=== PATIENT | female | born 1975 | race Caucasian/White ===

== ENCOUNTER 2017-09-09 05:46 | Day surgery (SDC) | payer BC ==
[~2017-09-09] VITALS: Ht 162.6 cm; Wt 75.9 kg
[~2017-09-09 05:46] MED LIST: PREN1TAB49
[2017-09-09 07:29] VITALS: Ht 162.6 cm; Wt 75.9 kg
[2017-09-09 07:53] VITALS: BP 140/87; PULSE 57; RESP 21
[2017-09-09] MEDS ORDERED: MIDAZOLAM 1 MG/ML 2 ML INJ ONE (07:59)
[2017-09-09] MEDS ORDERED: LIDOCAINE 2% (SDV) 5 ML INJ ONE (07:59)
[2017-09-09] MEDS ORDERED: PROPOFOL 40 ML ONE (07:59)
[2017-09-09] MEDS ORDERED: FENTAnyl 50 MCG/ML VIAL ONE (08:01)
--- NOTE | 2017-09-09 08:23 | OPPN ---
Date/Time of Note Date/Time of Note DATE: 09/09/17 TIME: 08:22 Operative Report Preoperative Diagnosis Screening Postoperative Diagnosis Internal hemorrhoids No colon neoplasm was identified Operation/Procedure Performed Colonoscopy Surgeon see signature line physician assistant primary care None Anesthesia: MAC Estimated blood loss: none Transfusion Required none Specimen None Grafts/Implants none Complications none JANETTE HUGO MD Sep 09, 2017 08:23
[2017-09-09 08:45] VITALS: BP 112/61; PULSE 60; RESP 16
--- NOTE | 2017-09-09 09:12 | GILP ---
DATE OF PROCEDURE: NAME OF PROCEDURE: Colonoscopy. SURGEON: Janette Germain MD. PREOPERATIVE DIAGNOSIS: Screening colonoscopy. POSTOPERATIVE DIAGNOSES: 1. Colonoscopy all the way to the cecum. 2. Internal hemorrhoids. 3. No colon neoplasm was identified. INDICATION FOR THE PROCEDURE: Ms. Mariama Keita is a 41-year-old female patient who had change i n the bowel habit with worsening constipation. She has family history of colon cancer. The patient was scheduled for screening colonoscopy. The procedure and possible complications were well explained to the patient, she understood and cons ented to the procedure. DESCRIPTION OF PROCEDURE: Under the influence of anesthesia, the colonoscope was carefully introduc ed in the rectum and under direct vision, it was advanced all the way to the cecum. FINDINGS: The patient had internal hemorrhoids. No colon neoplasm was identified. She tolerated the procedure very well and there was no complication from the procedure. At the end of the procedure, she was awake with stable vital signs and she was discharged home to the care of h er family. IMPRESSION: 1. Colonoscopy all the way to the cecum. 2. Internal hemorrhoids. 3. No colon neoplasm was identified. PLAN: 1. MiraLax 17 grams dissolved in a glass of water p.o. daily. 2. Advised high-fiber diet. 3. Next screening colonoscopy in 10 years. Dictated By: JANETTE ALLEN/FELIPE Conf#: [id number] DID#: [id number]
== END 2017-09-09 15:52 | disposition home or self-care (01) ==
LOC: GIL 05:46
PROVIDERS: ATTEND Internal Medicine Gastroenterology
DX: Z12.11 Encounter for screening for malignant neoplasm of colon (principal); K64.8 Other hemorrhoids
CPT/HCPCS: 45378; 84703; J2250; J3010; Z7610